=== PATIENT | male | born 1990 | race Caucasian/White ===

== ENCOUNTER 2020-06-02 14:49 | Emergency (ER) | payer SELFPAY ==
[~2020-06-02] VITALS: Ht 170.2 cm; Wt 58.1 kg
--- NOTE | 2020-06-02 15:24 | NUR ---
Patient discharged to home in stable condition. Written and verbal after care instructions given. Patient verbalizes understanding of instructions. Stressed follow up or return to ER for worsening s/s.
[2020-06-06 14:48] LABS: *GC NAA NEG; *TRIC.VAG. NAA NEG
== END 2020-06-02 15:28 | disposition home or self-care (01) ==
LOC: ER 14:49
DX: Z20.2 Contact with and (suspected) exposure to infections with a predominantly sexual mode of transmission (principal)
CPT/HCPCS: 87491; A4663

== ENCOUNTER 2022-11-05 19:51 | Emergency (ER) | payer BC ==
[~2022-11-05] VITALS: Ht 170.2 cm; Wt 54.4 kg
--- NOTE | 2022-11-05 20:21 | NUR ---
Patient sitting up at bedside with MD, no s/s of any distress noted, informed of plan of care at this time.
[2022-11-05] MEDS ORDERED: CYCLOBENZAPRINE HCL 10 MG TABLET ONE (20:25)
[2022-11-05] MEDS ORDERED: IBUPROFEN 600 MG TABLET ONE (20:25)
[2022-11-05] MEDS ORDERED: CYCL10TA9 PO (20:26)
--- NOTE | 2022-11-05 20:28 | NUR ---
Medicated as per order.
--- NOTE | 2022-11-05 20:29 | NUR ---
ACI given remains stable for discharge home with [employer].
[2022-11-05] MEDS ORDERED: IBUPROFEN 600 MG TABLET PO ONE (20:30)
[2022-11-05] MEDS ORDERED: CYCLOBENZAPRINE HCL 10 MG TABLET PO ONE (20:30)
[2022-11-05 20:32] VITALS: BP 104/63
== END 2022-11-05 20:32 | disposition home or self-care (01) ==
LOC: ER 19:51
DX: S13.4XXA Sprain of ligaments of cervical spine, initial encounter (principal); M62.830 Muscle spasm of back; W18.39XA Other fall on same level, initial encounter; Y93.89 Activity, other specified; Y92.89 Other specified places as the place of occurrence of the external cause; Y99.8 Other external cause status
CPT/HCPCS: A4663